=== PATIENT | female | born 1955 | race African-American/Black ===

== ENCOUNTER 2017-05-23 15:39 | Emergency (ER) | payer OTHER, MEDICARE ==
[~2017-05-23] VITALS: Ht 160 cm; Wt 79.5 kg
[2017-05-23 15:41] VITALS: BP 117/56; PULSE 97; RESP 14; TEMP 98.3; O2SAT 99
[2017-05-23] MEDS ORDERED: CLON0.5T PO (16:06)
[2017-05-23] MEDS ORDERED: METF500T PO (16:06)
[2017-05-23] MEDS ORDERED: METO1TAB42 PO (16:06)
[2017-05-23] MEDS ORDERED: LISI-519 PO (16:06)
[2017-05-23] MEDS ORDERED: VICT18IN SQ (16:06)
[2017-05-23] MEDS ORDERED: ATOR40TA16 PO (16:06)
[2017-05-23] MEDS ORDERED: CYCL7.5T33 (16:06)
[2017-05-23] MEDS ORDERED: MELO7.5T27 PO (16:06)
[2017-05-23] MEDS ORDERED: TOPI1CAP18 PO (16:06)
[2017-05-23] MEDS ORDERED: HUMALOG SQ (16:06)
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
[2017-05-23] MEDS ORDERED: ORPHENADRINE INJ 60 MG/2 ML AMP IM ONE (16:30)
[2017-05-23] MEDS ORDERED: KETOROLAC TROMETHAMINE 60 MG/2 ML (IM) VIAL IM ONE (16:30)
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
[2017-05-23 17:47] VITALS: RESP 16
== END 2017-05-23 17:56 | disposition home or self-care (01) ==
LOC: NEPK 15:39
DX: S39.012A Strain of muscle, fascia and tendon of lower back, initial encounter (principal); V89.2XXA Person injured in unspecified motor-vehicle accident, traffic, initial encounter; R51 Headache; E11.9 Type 2 diabetes mellitus without complications; I10 Essential (primary) hypertension
CPT/HCPCS: 72100; 96372; 99283; J1885; J2360